=== PATIENT | male | born 1990 | race Caucasian/White ===

== ENCOUNTER 2017-02-28 13:20 | Emergency (ER) | payer OTHER ==
[~2017-02-28] VITALS: Ht 172.7 cm; Wt 77.1 kg
[~2017-02-28 13:20] MED LIST: CLEOCIN HCL150 MG PO; IBUPROFEN 400400 M2 PO; IBUPROFEN 800800 MG PO; SUDAFED PE10 M2 PO; ZOFRAN ODT4 MG PO; ZPAK PO
[2017-02-28] MEDS ORDERED: AZITHROMYCIN 2250 MG PO (13:36)
[2017-02-28] MEDS ORDERED: DOXYCYCLINE 10100 MG PO (13:36)
[2017-02-28] MEDS ORDERED: TESSALON PERLE100 MG PO (13:37)
[2017-02-28] MEDS ORDERED: PREDNISONE 20 M20 MG PO (13:37)
[2017-02-28 14:12] LABS: HEMATOCRIT 43.7 % (42.0-52.0); HEMOGLOBIN 15.2 gm/dL (14.0-18.0); MCH 30.4 pg (26.0-34.0); MCHC 34.8 g/dL (28.0-37.0); MCV 87.3 fL (80.0-100.0); MPV 10.1 fl. (7.2-11.1); NUCLEATED RBCS 0 /100WBC; PLATELET COUNT* 136 thou/uL (150-400); RBC 5.01 mil/uL (4.50-6.00); RDW-CV 12.7 % (10.5-14.5); WBC 4.8 thou/uL (4.0-11.0)
[2017-02-28 14:20] LABS: CALCIUM 9.1 mg/dL (8.5-10.1)
[2017-02-28 14:25] LABS: TOTAL BILIRUBIN 0.4 mg/dL (<0.1-1.0); TOTAL PROTEIN 7.7 g/dL (6.4-8.2)
[2017-02-28 14:27] LABS: ABSOLUTE LYMPHOCYTES 0.3 thou/uL (0.8-5.3); ABSOLUTE MONOCYTES 0.1 thou/uL (0.0-1.2); ABSOLUTE NEUTROPHILS 4.3 thou/uL (1.6-8.1)
[2017-02-28 14:28] LABS: PLATELET ESTIMATE ADEQUATE
[2017-02-28 14:31] VITALS: BP 130/88
== END 2017-02-28 14:32 | disposition home or self-care (01) ==
LOC: M.ERS 13:20
PROVIDERS: Physician Assistant
DX: J20.9 Acute bronchitis, unspecified (principal); Z88.0 Allergy status to penicillin